=== PATIENT | male | born 1950 | race Caucasian/White ===

== ENCOUNTER 2019-06-27 14:55 | Emergency (ER) | payer SELFPAY ==
[2019-06-27 15:15] VITALS: BP 150/88
--- NOTE | 2019-06-27 15:29 | UC ---
Eye Complaint HPI - HPI Summary HPI Summary: 69 yo male presents with LEFT eye irritation. He tells me that yesterday he was working on ceiling tile and some dust got into his left eye. He washed it out, but today has a FB sensation and notices left eye redness and is having clear drainage. He does not wear glasses or contacts. Denies vision changes. - History of Current Complaint Chief Complaint: UCEye Stated Complaint: EYE IRRITATION RELATED TO WORK Time Seen by Provider: 06/27/19 15:29 Hx Obtained From: Patient Onset/Duration: Sudden Onset Severity Initially: Mild Severity Currently: Moderate Pain Intensity: 5 Pain Scale Used: 0-10 Numeric - Allergies/Home Medications Allergies/Adverse Reactions: Allergies Allergy/AdvReac Type Severity Reaction Status Date / Time No Known Allergies Allergy Verified 06/27/19 15:16 PMH/Surg Hx/FS Hx/Imm Hx - Additional Past Medical History Additional PMH: None - Surgical History Surgical History: None - Family History Known Family History: Positive: Hypertension - Social History Lives: With Family Alcohol Use: Daily Substance Use Type: None Smoking Status (MU): Never Smoked Tobacco Review of Systems All Other Systems Reviewed And Are Negative: No Constitutional: Positive: Negative Skin: Positive: Negative Eyes: Positive: Drainage, Eye Redness ENT: Positive: Negative Respiratory: Positive: Negative Cardiovascular: Positive: Negative Neurological: Positive: Negative Psychological: Positive: Negative Physical Exam - Summary Physical Exam Summary: GENERAL: WDWN. No pain distress. SKIN: No rashes, sores, lesions, or open wounds. HEENT: Head: AT/NC Eyes: EOM intact. PERRLA. LEFT EYE: Mild scleral injection. Conjunctiva with slight erythema and inflammation. Mild clear discharge. No FBs appreciated. Fluorescein dye exam reveals ~2mm linear abrasion to 3 o'clock position of cornea. No campos sign, rust ring, or ulceration. Nose: NTTP maxillary and frontal sinus. NECK: Supple. Nontender. No lymphadenopathy. CHEST: No accessory muscle use. Breathing comfortably and in no distress. CV: Pulses intact. Cap refill <2seconds NEURO: Alert. PSYCH: Age appropriate behavior. Triage Information Reviewed: Yes Vital Signs: Initial Vital Signs Temp 98.5 F 06/27/19 15:09 Pulse 64 06/27/19 15:09 Resp 16 06/27/19 15:09 BP 150/88 06/27/19 15:09 Pulse Ox 99 06/27/19 15:09 Vital Signs Reviewed: Yes Eye Complaint Course/Dx - Course Course Of Treatment: Corneal abrasion - Differential Dx/Diagnosis Provider Diagnosis: Corneal abrasion Discharge ED - Sign-Out/Discharge Documenting (check all that apply): Patient Departure All imaging exams completed and their final reports reviewed: No Studies - Discharge Plan Condition: Stable Disposition: HOME Prescriptions: Ofloxacin 0.3% (Eye Drop) [Ocuflox OPTH 0.3% (Eye Drop)] 1 drop LEFT EYE QID 5 Days #1 btl Patient Education Materials: Corneal Abrasion (ED) Referrals: No Primary Care Phys,NOPCP [Primary Care Provider] - Additional Instructions: If you develop a fever, shortness of breath, chest pain, new or worsening symptoms - please call your PCP or go to the ED immediately. Your blood pressure was high at todays visit. Please see your primary provider within 4 weeks for recheck and re-evaluation. - Billing Disposition and Condition Condition: STABLE Disposition: Home
[2019-06-27] MEDS ORDERED: Tetracaine 0.5% OPTH.SOL 4 ML* 1 DROP BTL LEFT EYE ONE (15:34)
[2019-06-27] MEDS ORDERED: Fluorescein Sodium TOPICAL* 1 MG TEST STRIP OPHTHALMIC ONE (15:34)
== END 2019-06-27 16:17 | disposition home or self-care (01) ==
LOC: UCEAST 14:55
DX: S05.02XA Injury of conjunctiva and corneal abrasion without foreign body, left eye, initial encounter (principal); I10 Essential (primary) hypertension; X58.XXXA Exposure to other specified factors, initial encounter; Y92.9 Unspecified place or not applicable
CPT/HCPCS: 99202; A9270-GY; G0463